=== PATIENT | male | born 1955 | race American Indian/Alaskan Native ===

== ENCOUNTER 2016-08-17 13:10 | Emergency (ER) | payer SELFPAY ==
--- NOTE | 2016-08-17 14:34 | Emergency Department Report ---
Entered by ZACHARY LYON, acting as scribe for LUCAS DODSON PA. Chief Complaint: Extremity Injury, Lower Stated Complaint: KNOTS IN LT THIGH Time Seen by Provider: 08/17/16 14:05 - HPI History of Present Illness: Patient presents to the ED c/o left posterior thigh pain and bruising that began 2 days ago. Rates pain a 7/10 in severity and tight in quality. Patient states the pain woke him up in his sleep 2 days ago and he subsequently felt a "lump". Denies any injury. Denies being on blood thinners. Denies SOB and chest pain. Denies previous Hx of blood clots. - ROS Review of Systems: All system are negative unless stated in HPI above. - Exam Vital Signs: Vital Signs 08/17/16 13:53 Temperature 98.2 F Pulse Rate 68 Respiratory 18 Rate Blood Pressure 139/70 O2 Sat by Pulse 97 Oximetry Physical Exam: General: well nourished, well developed, nontoxic in appearance, in no acute distress Extremities: dorsalis pedis pulses are 2+. Lateral left leg swelling with ecchymosis, left thigh TTP, soreness to left calf MSE screening note: Focused history and physical exam performed. Due to findings the following was ordered: ED Medical Decision Making - Medical Decision Making Medical decision making: Patient seen by provider in triage area. Appropriate protocol activated and patient to main ED to be seen by provider. given clonidine 0.2 mg in triage area. ED Disposition for MSE Condition: Stable This documentation as recorded by the scribe,ZACHARY LYON,accurately reflects the service I personally performed and the decisions made by dc,LUCAS DODSON PA.
[2016-08-17 15:20] LABS: Basophils % (Auto) 0.8 % (0.0-1.8); Eosinophils % (Auto) 2.6 % (0.0-4.3); Hematocrit 37.8 % (35.5-45.6); Hemoglobin 12.4 gm/dl (11.8-15.2); Mean Corpuscular HGB Conc 33 % (32-34); Mean Corpuscular Hemoglobin 32 pg (28-32); Mean Corpuscular Volume 97 fl (84-94); Platelet Count 219 K/mm3 (140-440); Red Blood Count 3.91 M/mm3 (3.65-5.03); Red Cell Distribution Width 13.4 % (13.2-15.2); White Blood Count 7.6 K/mm3 (4.5-11.0)
[2016-08-17 15:29] LABS: INR 0.94 (0.87-1.13)
[2016-08-17 15:30] LABS: Partial Thromboplastin Time 25.1 Sec. (24.2-36.6)
[2016-08-17 15:36] LABS: Anion Gap 15 mmol/L; Blood Urea Nitrogen 12 mg/dL (9-20); Calcium 9.4 mg/dL (8.4-10.2); Carbon Dioxide 29 mmol/L (22-30); Chloride 97.2 mmol/L (98-107); Glucose 77 mg/dL (75-100); Potassium 5.1 mmol/L (3.6-5.0); Sodium 136 mmol/L (137-145)
--- NOTE | 2016-08-17 15:38 | Cat Scan Report ---
CT HEAD WITHOUT CONTRAST INDICATION: Headache. COMPARISON: None similar. FINDINGS: Noncontrast head CT demonstrates normal ventricles and sulci without acute or recent infarct, hemorrhage, mass effect or midline shift. No abnormal extra-axial fluid collections. Posterior fossa structures and basilar cisterns appear within normal limits. Symmetric eye globes. Leftward nasal septal deviation/spur. Mild right frontoethmoid mucosal thickening. Clear remainder paranasal sinuses and mastoid air cells. Intact calvarium. Normal overlying scalp soft tissues. Few radiopaque dental material and missing teeth incidentally noted. Cervical spondylosis. CONCLUSION: No acute intracranial CT abnormality with few other findings, as described. Thank you for the opportunity to participate in this patient's care.
[2016-08-17] MEDS ORDERED: ZOFRAN ODT PO ONE (20:43)
[2016-08-17] MEDS ORDERED: TORADOL IM ONE (20:43)
[2016-08-17] MEDS ORDERED: TYLENOL PO ONE (20:45)
--- NOTE | 2016-08-17 20:46 | Emergency Department Report ---
HPI - General Chief Complaint: Extremity Injury, Lower Time Seen by Provider: 08/17/16 20:06 - HPI HPI: The patient is a 60-year-old male who presents for evaluation of leg pain. The patient reports proximal left thigh pain for the past 2 days. He says his pain has been throbbing in quality, 7/10 in severity, exacerbated with movement of the left upper leg, and constant since onset. He states that he awoke with the pain. He also woke with bruising to the left lateral leg. He does not recall injuring the leg or sustain trauma. He denies fever, swelling of the leg, paresthesias, motor deficit, back pain, abdominal pain, easy bruising or bleeding. ED Past Medical Hx - Past Medical History Hx Hypertension: Yes Hx Diabetes: Yes Additional medical history: high cholesterol - Surgical History Additional Surgical History: back surgery 1992,nose surgery r/t FX - Social History Smoking Status: Current Every Day Smoker Substance Use Type: Alcohol - Medications Home Medications: Home Medications Medication Instructions Recorded Confirmed Last Taken Type Cephalexin [Keflex] 500 mg PO QID #20 capsule 08/17/16 Unknown Rx Cyclobenzaprine HCl [Flexeril 5 MG 5 mg PO Q8HR PRN #15 tab 08/17/16 Unknown Rx TAB] Ibuprofen [Motrin] 800 mg PO Q8HR PRN #15 tablet 08/17/16 Unknown Rx Lisinopril [Zestril TAB] 40 mg PO QDAY 08/17/16 08/17/16 08/17/16 History metFORMIN [Glucophage] 500 mg PO BID 08/17/16 08/17/16 08/17/16 History ED Review of Systems ROS: Stated complaint: KNOTS IN LT THIGH Other details as noted in HPI Constitutional: denies: fever ENT: denies: throat or neck pain Respiratory: denies: cough, shortness of breath Cardiovascular: denies: chest pain Endocrine: denies unexplained weight loss or gain Gastrointestinal: denies: abdominal pain, nausea Genitourinary: denies: dysuria Musculoskeletal: reports left leg pain and bruising denies: leg swelling Skin: denies: rash Neurological: denies: headache Hematological/Lymphatic: denies: easy bleeding or easy bruising Psych: denies sadness or hopelessness Physical Exam - Physical Exam Vital Signs: Vital Signs 08/17/16 08/17/16 13:53 17:49 Temperature 98.2 F 98.4 F Pulse Rate 68 51 L Respiratory 18 16 Rate Blood Pressure 139/70 Blood Pressure 159/66 [Left] O2 Sat by Pulse 97 100 Oximetry Physical Exam: General: well-nourished, well-developed, no acute distress Head: Normocephalic, atraumatic Eyes: normal sclera ENT: Mucous membranes are pink and moist Neck: trachea midline, neck supple, No neck stiffness, no cervical adenopathy Respiratory: Breath sounds equal bilaterally, no wheezing, rales, or rhonchi Cardio: S1 and S2 present, no murmurs, rubs, gallops, capillary refill is brisk Abdomen: Normoactive bowel sounds, soft abdomen, no tenderness Chest WALL/Back: No tenderness to palpation of the chest wall, no CVA tenderness with percussion, small 2-3 cm area of mild erythema to lower thoracic back, right of the midline, nontender, without fluctuance, warmth, crepitance, no sign of abscess at this time, no midline thoracic or lumbar spinous tenderness to palpation, no sensation or motor deficits in the legs bilaterally, reflexes are 2+ and symmetric in the legs as well Musc: two circular 2cm contusions present to the left proximal lateral thigh, tender to palpation, no redness, swelling, fluctuance, crepitus, No pitting edema Skin: No rash Neuro: no facial drooping, normal speech Psych: Normal affect ED Course Vital Signs 08/17/16 08/17/16 13:53 17:49 Temperature 98.2 F 98.4 F Pulse Rate 68 51 L Respiratory 18 16 Rate Blood Pressure 139/70 Blood Pressure 159/66 [Left] O2 Sat by Pulse 97 100 Oximetry ED Medical Decision Making - Lab Data Result diagrams: 08/17/16 15:02 08/17/16 15:02 - Medical Decision Making The patient was seen and examined by myself. The patient is placed on a surveillance monitor and continuous pulse ox. On initial evaluation, the patient was found to be in no distress. Exam findings are positive for contusion to the left proximal lateral thigh and mild cellulitis to the lower back, no fluctuance or sign of abscess at this time. Additionally patient is afebrile. The patient is given a tablet of Tylenol and IM Toradol for his leg pain. EKG was negative for findings suggestive of acute cardiac infarct. Labs and imaging are obtained. Lab results were non-concerning including levels of troponin, WBC , hemoglobin, hematocrit, electrolytes, renal function. The patient was reevaluated and reported that their symptoms were markedly improved. Ultrasound of the left lower leg negative for DVT. The patient is given a prescription for Keflex for treatment of potential early lower back cellulitis. The patient is stable for discharge with outpatient follow-up. The patient is given follow-up and return instructions. The patient expressed understanding and agreed with the plan. The patient is discharged in stable condition. Critical care attestation.: If time is entered above; I have spent that time in minutes in the direct care of this critically ill patient, excluding procedure time. ED Disposition Clinical Impression: Acute pain of left lower extremity, Cellulitis of lower back Contusion of leg, left Qualifiers: Encounter type: initial encounter Qualified Code(s): S80.12XA - Contusion of left lower leg, initial encounter Disposition: DISCHARGED TO HOME OR SELFCARE Is pt being admited?: No Does the pt Need Aspirin: No Condition: Stable Instructions: Cellulitis (ED), Musculoskeletal Pain (ED), Contusion in Adults ( ED) Prescriptions: Cephalexin [Keflex] 500 mg PO QID #20 capsule Cyclobenzaprine HCl [Flexeril 5 MG TAB] 5 mg PO Q8HR PRN #15 tab PRN Reason: Pain Ibuprofen [Motrin] 800 mg PO Q8HR PRN #15 tablet PRN Reason: Pain Referrals: PRIMARY CARE,MD [Primary Care Provider] - 3-5 Days Time of Disposition: 20:36
[2016-08-17 22:20] VITALS: BP 135/82
--- NOTE | 2016-08-18 14:47 | Vascular Lab Report ---
Left Lower Extremity Venous Duplex Study: Reason for Exam: Left leg swelling. Comments on the Right: A limited duplex study was done of the proximal veins of the right lower extremity. All veins visualized are freely compressible without evidence of internal echogenicity. Flow is spontaneous and phasic throughout. No evidence of acute or chronic thrombus is seen in any of the vessels visualized. Comments on the Left: All veins visualized are freely compressible without evidence of internal echogenicity. Flow is spontaneous and phasic throughout. No evidence of acute or chronic thrombus is seen in any of the vessels visualized. Impression: No evidence of acute or chronic deep venous thrombosis in the left lower extremity.
== END 2016-08-17 22:20 | disposition home or self-care (01) ==
LOC: ED 13:10
DX: S80.12XA Contusion of left lower leg, initial encounter (principal); L03.119 Cellulitis of unspecified part of limb; M79.662 Pain in left lower leg; I10 Essential (primary) hypertension; F17.200 Nicotine dependence, unspecified, uncomplicated; E78.00 Pure hypercholesterolemia, unspecified; E11.9 Type 2 diabetes mellitus without complications; X58.XXXA Exposure to other specified factors, initial encounter; Y93.89 Activity, other specified; Y99.9 Unspecified external cause status; Y92.89 Other specified places as the place of occurrence of the external cause
CPT/HCPCS: 36415; 70450; 80048; 84484; 85025; 85610; 85730; 93971; 96372; 99285; J1885; Q0162

== ENCOUNTER 2016-12-23 07:08 | Emergency (ER) | payer SELFPAY ==
[2016-12-23 07:40] VITALS: BP 129/74
--- NOTE | 2016-12-23 09:39 | XRay Report ---
X-RAY LEFT FOOT THREE VIEWS: 12/23/16 07:22:00 CLINICAL: Pain. FINDINGS: No fracture or dislocation. A small Achilles enthesophyte. Mild arthritis at the first MTP joint. The rest of the joints are normal. Vascular calcifications at the ankle. Mild dorsal soft tissue swelling. IMPRESSION: Mild nonspecific soft tissue swelling. Mild arthritis at the first MTP joint and mild Achilles enthesopathy.
[2016-12-23] MEDS ORDERED: PERCOCET 5/325 PO ONE (11:38)
[2016-12-23] MEDS ORDERED: CLEOCIN IM ONE (11:38)
--- NOTE | 2016-12-23 11:56 | Emergency Department Report ---
Entered by ZACHARY LYON, acting as scribe for LUCAS DODSON PA. ED Lower Extremity HPI - General Chief Complaint: Extremity Injury, Lower Stated Complaint: LEFT FOOT INJURY Time Seen by Provider: 12/23/16 08:51 Source: patient, family Mode of arrival: Wheelchair Limitations: No Limitations - History of Present Illness Initial Comments: 61 y/o male with a PMHx of IDDM, HTN, and hyperlipidemia presents to the ED c/o left foot pain that began 2 days ago. Patient states he was standing on his toes reaching for something on top of a shelf and he subsequently heard a pop in his left foot. Rates pain a 10/10 in severity, which he describes as aching in quality. Aggravated with palpation, weight bearing, and movement, and alleviated with immobilization and rest. Denies fever, chills, nausea, vomiting , chest pain, SOB, headache, dizziness, numbness, and tingling. Denies Hx of similar symptoms. Denies PMHx of neuropathy. Patient states his blood sugar is controlled. Allergic to codeine. Patient goes to the [facility] at [facility] for his medical care. MD Complaint: foot injury Onset/Timin -: days(s) (2 days) Injury: Foot: Left (dorsal aspect, pain swelling after injury) Type of Injury: unknown, other (she thinks that when he was trying to reach up to get something from the shelf he injured his left foot but denies any blunt trauma, twisting or falling.) Place: home Severity: severe Severity scale (0 -10): 10 Improves With: immobilization, rest Worsens With: weight bearing, movement, palpation Context: other (reaching for something on a shelf standing on his toes and subsequently heard a pop) Associated Symptoms: snap/pop sensation, swelling (LT foot), able to partially bear weight, ambulatory. denies: numbness, tingling Treatments Prior to Arrival: NSAIDS - Related Data Home Medications Medication Instructions Recorded Confirmed Last Taken Lisinopril [Zestril TAB] 40 mg PO QDAY 08/17/16 08/17/16 08/17/16 metFORMIN [Glucophage] 500 mg PO BID 08/17/16 08/17/16 08/17/16 Previous Rx's Medication Instructions Recorded Last Taken Type Cephalexin [Keflex] 500 mg PO QID #20 capsule 08/17/16 Unknown Rx Cyclobenzaprine HCl [Flexeril 5 MG 5 mg PO Q8HR PRN #15 tab 08/17/16 Unknown Rx TAB] Ibuprofen [Motrin] 800 mg PO Q8HR PRN #15 tablet 08/17/16 Unknown Rx Sulfamethoxazole/Trimethoprim 1 each PO BID #20 tablet 12/23/16 Unknown Rx [Bactrim DS TAB] traMADol [Ultram] 50 mg PO Q6HR PRN #15 tablet 12/23/16 Unknown Rx Allergies Allergy/AdvReac Type Severity Reaction Status Date / Time codeine AdvReac Itching Verified 08/17/16 13:57 ED Review of Systems Comment: All other systems reviewed and negative Constitutional: denies: chills, fever Eyes: denies: eye pain, eye discharge, vision change ENT: denies: ear pain, throat pain Respiratory: denies: cough, orthopnea, shortness of breath, SOB with exertion, SOB at rest, stridor, wheezing Cardiovascular: denies: chest pain, palpitations, dyspnea on exertion, orthopnea , edema, syncope, paroxysmal nocturnal dyspnea Endocrine: no symptoms reported Gastrointestinal: denies: abdominal pain, nausea, vomiting, diarrhea Genitourinary: denies: urgency, dysuria Musculoskeletal: joint swelling (LT foot), arthralgia (LT foot pain). denies: back pain, myalgia Skin: denies: rash, lesions Neurological: abnormal gait (patient with left foot pain and redness and limb.) . denies: headache, weakness, numbness, paresthesias, confusion ED Past Medical Hx - Past Medical History Previous Medical History?: Yes Hx Hypertension: Yes Hx Diabetes: Yes Additional medical history: high cholesterol - Surgical History Past Surgical History?: Yes Additional Surgical History: back surgery 1993,nose surgery r/t FX - Family History Family history: no significant - Social History Smoking Status: Current Every Day Smoker Substance Use Type: None Other Social History: - Medications Home Medications: Home Medications Medication Instructions Recorded Confirmed Last Taken Type Cephalexin [Keflex] 500 mg PO QID #20 capsule 08/17/16 Unknown Rx Cyclobenzaprine HCl [Flexeril 5 MG 5 mg PO Q8HR PRN #15 tab 08/17/16 Unknown Rx TAB] Ibuprofen [Motrin] 800 mg PO Q8HR PRN #15 tablet 08/17/16 Unknown Rx Lisinopril [Zestril TAB] 40 mg PO QDAY 08/17/16 08/17/16 08/17/16 History metFORMIN [Glucophage] 500 mg PO BID 08/17/16 08/17/16 08/17/16 History Sulfamethoxazole/Trimethoprim 1 each PO BID #20 tablet 12/23/16 Unknown Rx [Bactrim DS TAB] traMADol [Ultram] 50 mg PO Q6HR PRN #15 tablet 12/23/16 Unknown Rx ED Physical Exam - General Limitations: No Limitations General appearance: alert, in no apparent distress - Head Head exam: Present: atraumatic, normocephalic - Eye Eye exam: Present: normal appearance, PERRL, EOMI Pupils: Present: normal accommodation - ENT ENT exam: Present: normal exam, normal orophraynx, mucous membranes moist, normal external ear exam - Neck Neck exam: Present: normal inspection, full ROM. Absent: tenderness, meningismus, lymphadenopathy - Respiratory Respiratory exam: Present: normal lung sounds bilaterally. Absent: respiratory distress, wheezes, rales, rhonchi, stridor, accessory muscle use, decreased breath sounds - Cardiovascular Cardiovascular Exam: Present: regular rate, normal rhythm, normal heart sounds. Absent: systolic murmur, diastolic murmur, rubs, gallop - GI/Abdominal GI/Abdominal exam: Present: soft, normal bowel sounds. Absent: distended, tenderness, guarding, rebound, rigid - Extremities Exam Extremities exam: Present: full ROM (painfulr FROM to LT foot), tenderness ( dorsal and plantar aspect of LT foot), normal capillary refill. Absent: normal inspection, pedal edema, joint swelling, calf tenderness - Expanded Lower Extremity Exam Left Hip exam: Present: normal inspection, full ROM, external rotation, internal rotation, pelvic stability. Absent: tenderness, swelling, abrasion, laceration , ecchymosis, deformity, crepidus, dislocation, erythema, shortening Upper Leg exam: Present: normal inspection, full ROM. Absent: tenderness, swelling, abrasion, laceration, ecchymosis, deformity, crepidus, dislocation, erythema Knee exam: Present: normal inspection, full ROM, full knee extension. Absent: tenderness, swelling, abrasion, laceration, ecchymosis, deformity, crepidus, dislocation, erythema, effusion, pain w/ pronation/supination, posterior draw sign, pain/laxity with valgus, pain/laxity with varus Lower Leg exam: Present: normal inspection, full ROM. Absent: tenderness, swelling, abrasion, laceration, ecchymosis, deformity, crepidus, dislocation, erythema, palpable cord, Nusrat's sign Ankle exam: Present: normal inspection, full ROM. Absent: tenderness, swelling , abrasion, laceration, ecchymosis, deformity, crepidus, dislocation, erythema, anterior draw sign Foot/Toe exam: Present: full ROM (painful with AROM to LT foot.), tenderness ( dorsal and plantar aspect of LT control room tender to palpate), swelling (mild swelling to dorsal aspect of LT foot anterior), erythema (dorsal aspect of LT foot, anteriorly). Absent: normal inspection, abrasion, laceration, ecchymosis , deformity, crepidus, dislocation, amputation, puncture wound, foreign body, calcaneal tenderness, tenderness at base of 5th metatarsal, nail avulsion, subungual hematoma Neuro vascular tendon exam: Present: no vascular compromise (2+ pulses bounding) . Absent: pulse deficit, abnormal cap refill, motor deficit, sensory deficit, tendon deficit, extremity cold to touch, pallor, abnormal 2-point discrimination , decreased fine/light touch, foot drop, peroneal nerve deficit, significant pain with passive ROM of distal joint Gait: Positive: observed and limited by pain - Back Exam Back exam: Present: normal inspection, full ROM. Absent: tenderness, CVA tenderness (R), CVA tenderness (L), muscle spasm, paraspinal tenderness, vertebral tenderness, rash noted - Neurological Exam Neurological exam: Present: alert, oriented X3, abnormal gait (due to LT foot pain), reflexes normal. Absent: motor sensory deficit - Psychiatric Psychiatric exam: Present: normal affect, normal mood - Skin Skin exam: Present: warm, dry, intact, erythema (Erythema noted to the left anterior foot, dorsally. Increased temperature to left foot when compared to right foot. +2 pulses.pillar refill is less than 3 seconds). Absent: rash, abrasion, ecchymosis ED Course Vital Signs 12/23/16 07:10 Temperature 98.1 F Pulse Rate 80 Respiratory 20 Rate Blood Pressure 129/74 O2 Sat by Pulse 98 Oximetry - Reevaluation(s) Reevaluation #1: 12/23/16 11:46 Patient given clindamycin 600 mg IM for cellulitis of left foot. He was also given Percocet 5/325 2 tablets by mouth for left foot pain. No adverse reaction. ED Lower Extremity MDM - Radiology Data X-ray of left foot showed soft tissue swelling but no bony abnormality. No fracture or dislocation - Medical Decision Making ED course: Pt here report left foot pain and thinks that he injured his left foot while he was trying to reach for something in his cupboard. X-ray report revealed no fracture or dislocation. Patient is a diabetic and his left foot is erythema with mild swelling and temperature is graded to left foot than right foot. Suspect this is from cellulitis. I discussed this with patient and explained to him that he will need to follow-up with foot doctor. Patient' s that he goes to the [facility] and he'll call to schedule an appointment for follow- up visit cellulitis. Patient and discharged home with his in stable condition. Patient was given Percocet 5/325 mg 2 tablets which relieved this pain and he was given clindamycin 600 mg IM for cellulitis. Diagnostics: See radiology section for x-ray of left foot report Assessment/plan 1. Cellulitis left foot 2 .arthralgia left foot 3. Personal history of diabetes on medication Prescription for Bactrim DS and Ultram given to patient. Instructed to follow-up with manager room and also call [facility] clinic to schedule an appointment follow-up visit cellulitis. I also instructed him to monitor his blood or more frequently as infection cause is increase in blood sugar. Patient takes metformin for his diabetes ED Disposition Clinical Impression: Cellulitis of foot, left, Left foot pain, History of type 2 diabetes mellitus Disposition: DC-01 TO HOME OR SELFCARE Is pt being admited?: No Does the pt Need Aspirin: No Condition: Stable Instructions: Arthralgia (ED), Cellulitis (ED) Additional Instructions: Please follow up with [facility] clinic to manage cellulitis and diabetes. Please call today to schedule an appointment for follow-up visit in 2 days Take medication as prescribed. Keep affected area clean and dry Increase your fluid intake Take blood sugar at least twice a day as infection can cause your blood sugar to rise Prescriptions: Sulfamethoxazole/Trimethoprim [Bactrim DS TAB] 1 each PO BID #20 tablet traMADol [Ultram] 50 mg PO Q6HR PRN #15 tablet PRN Reason: Pain Referrals: [facility] [Outside] - 12/25/16 AQUILES VILLARREAL DPM [Staff Physician] - 12/25/16 Forms: Work/School Release Form(ED) This documentation as recorded by the CAMORN rivera JASMINE,accurately reflects the service I personally performed and the decisions made by ,LUCAS DODSON PA.
== END 2016-12-23 12:23 | disposition home or self-care (01) ==
LOC: ED 07:08
DX: L03.116 Cellulitis of left lower limb (principal); E11.9 Type 2 diabetes mellitus without complications; I10 Essential (primary) hypertension; E78.00 Pure hypercholesterolemia, unspecified; F17.200 Nicotine dependence, unspecified, uncomplicated; Z88.6 Allergy status to analgesic agent
CPT/HCPCS: 96372

== ENCOUNTER 2017-11-07 21:52 | Emergency (ER) | payer SELFPAY | END 2017-11-07 23:50 | disposition left against medical advice (07) | LOC: ED 21:52 | DX: R19.7 Diarrhea, unspecified (principal); Z53.21 Procedure and treatment not carried out due to patient leaving prior to being seen by health care provider ==

== ENCOUNTER 2017-12-25 20:10 | Emergency (ER) | payer SELFPAY ==
[2017-12-25 20:44] LABS: Basophils # (Auto) 0.1 K/mm3 (0.0-0.1); Basophils % (Auto) 0.6 % (0.0-1.8); Eosinophils # (Auto) 0.2 K/mm3 (0.0-0.4); Eosinophils % (Auto) 1.9 % (0.0-4.3); Hematocrit 38.7 % (35.5-45.6); Hemoglobin 12.8 gm/dl (11.8-15.2); Lymphocytes % (Auto) 18.5 % (13.4-35.0); Mean Corpuscular HGB Conc 33 % (32-34); Mean Corpuscular Hemoglobin 32 pg (28-32); Mean Corpuscular Volume 96 fl (84-94); Monocytes % (Auto) 9.1 % (0.0-7.3); Platelet Count 210 K/mm3 (140-440); Red Blood Count 4.04 M/mm3 (3.65-5.03); Red Cell Distribution Width 13.4 % (13.2-15.2)
[2017-12-25] MEDS ORDERED: NARCAN 2 MG/2 ML 2 MG in NACL 0.9% 500 ML 500 ML IV ONE (20:47)
[2017-12-25] MEDS ORDERED: NARCAN 2 MG/2 ML IV ONE (20:47)
[2017-12-25] MEDS ORDERED: NARCAN 2 MG/2 ML ONE (20:53)
--- NOTE | 2017-12-25 20:55 | Emergency Department Report ---
History of Present Illness - General Chief Complaint: Overdose Stated Complaint: POSS OD Time Seen by Provider: 12/25/17 20:42 Source: patient, EMS Mode of arrival: Stretcher Limitations: No Limitations - History of Present Illness Initial Comments: Patient is 62 years old male brought to the ER via EMS after he was found by his significant other in the bathroom unconscious and gasping for breath. patient stated that he took a quarter of heroin this evening. He stated that he took it to get high. Patient denied any suicidal ideation. Patient is currently alert but drowsy sometimes. Another 2 mg of IV Narcan was given and I started patient on Narcan drip. Complaint: accidental overdose - Related Data Home Medications Medication Instructions Recorded Confirmed Last Taken Lisinopril [Zestril TAB] 40 mg PO QDAY 08/17/16 08/17/16 08/17/16 metFORMIN [Glucophage] 500 mg PO BID 08/17/16 08/17/16 08/17/16 Previous Rx's Medication Instructions Recorded Last Taken Type Cyclobenzaprine HCl [Flexeril 5 MG 5 mg PO Q8HR PRN #15 tab 08/17/16 Unknown Rx TAB] Ibuprofen [Motrin] 800 mg PO Q8HR PRN #15 tablet 08/17/16 Unknown Rx cephALEXin [Keflex] 500 mg PO QID #20 capsule 08/17/16 Unknown Rx Sulfamethoxazole/Trimethoprim 1 each PO BID #20 tablet 12/23/16 Unknown Rx [Bactrim DS TAB] traMADol [Ultram] 50 mg PO Q6HR PRN #15 tablet 12/23/16 Unknown Rx Allergies Allergy/AdvReac Type Severity Reaction Status Date / Time codeine AdvReac Itching Verified 08/17/16 13:57 ED Review of Systems ROS: Stated complaint: POSS OD Other details as noted in HPI Comment: All other systems reviewed and negative Constitutional: denies: chills, fever Respiratory: denies: cough, orthopnea, shortness of breath, SOB with exertion, wheezing Gastrointestinal: denies: vomiting, diarrhea, constipation, hematemesis, hematochezia Skin: denies: rash, lesions ED Past Medical Hx - Past Medical History Previous Medical History?: Yes Hx Hypertension: Yes Hx Diabetes: Yes Additional medical history: high cholesterol - Surgical History Past Surgical History?: Yes Additional Surgical History: back surgery 1993,nose surgery r/t FX - Social History Smoking Status: Current Every Day Smoker Substance Use Type: Alcohol, Heroin - Medications Home Medications: Home Medications Medication Instructions Recorded Confirmed Last Taken Type Cyclobenzaprine HCl [Flexeril 5 MG 5 mg PO Q8HR PRN #15 tab 08/17/16 Unknown Rx TAB] Ibuprofen [Motrin] 800 mg PO Q8HR PRN #15 tablet 08/17/16 Unknown Rx Lisinopril [Zestril TAB] 40 mg PO QDAY 08/17/16 08/17/16 08/17/16 History cephALEXin [Keflex] 500 mg PO QID #20 capsule 08/17/16 Unknown Rx metFORMIN [Glucophage] 500 mg PO BID 08/17/16 08/17/16 08/17/16 History Sulfamethoxazole/Trimethoprim 1 each PO BID #20 tablet 12/23/16 Unknown Rx [Bactrim DS TAB] traMADol [Ultram] 50 mg PO Q6HR PRN #15 tablet 12/23/16 Unknown Rx ED Physical Exam - General Limitations: No Limitations General appearance: alert, in no apparent distress - Head Head exam: Present: atraumatic, normocephalic, normal inspection - Eye Eye exam: Present: normal appearance Pupils: Present: other (pupils are pinpoint) - ENT ENT exam: Present: normal exam, normal orophraynx, mucous membranes moist - Neck Neck exam: Present: normal inspection, full ROM. Absent: tenderness, meningismus, lymphadenopathy - Respiratory Respiratory exam: Present: normal lung sounds bilaterally. Absent: respiratory distress, wheezes, rales, rhonchi, stridor, chest wall tenderness, accessory muscle use, decreased breath sounds, prolonged expiratory - Cardiovascular Cardiovascular Exam: Present: regular rate, normal rhythm, normal heart sounds - GI/Abdominal GI/Abdominal exam: Present: soft, normal bowel sounds. Absent: distended, tenderness, guarding, rebound, rigid, organomegaly, mass, bruit, pulsatile mass , hernia - Extremities Exam Extremities exam: Present: normal inspection, full ROM, normal capillary refill - Back Exam Back exam: Present: normal inspection, full ROM. Absent: tenderness, CVA tenderness (R), CVA tenderness (L) - Neurological Exam Neurological exam: Present: alert, oriented X3, CN II-XII intact, reflexes normal - Skin Skin exam: Present: warm, intact, normal color ED Course Vital Signs 12/25/17 12/25/17 12/25/17 20:17 20:34 20:45 Temperature 97.9 F Pulse Rate 62 91 H 84 Respiratory 16 10 L Rate Blood Pressure 126/62 133/67 O2 Sat by Pulse 95 94 99 Oximetry 12/25/17 12/25/17 12/25/17 21:00 21:16 21:30 Temperature Pulse Rate 112 H Respiratory 17 24 16 Rate Blood Pressure 140/88 140/88 140/70 O2 Sat by Pulse 96 100 98 Oximetry 12/25/17 12/25/17 12/25/17 21:46 22:00 22:15 Temperature Pulse Rate 79 81 77 Respiratory 14 13 10 L Rate Blood Pressure 140/70 134/72 134/72 O2 Sat by Pulse 99 98 100 Oximetry 12/25/17 12/25/17 12/25/17 22:30 22:45 23:00 Temperature Pulse Rate 76 84 75 Respiratory 12 16 12 Rate Blood Pressure 134/72 142/72 141/73 O2 Sat by Pulse 99 100 99 Oximetry 12/25/17 12/25/17 12/25/17 23:16 23:30 23:45 Temperature Pulse Rate 83 74 77 Respiratory 14 14 13 Rate Blood Pressure 141/73 141/73 149/66 O2 Sat by Pulse 98 99 99 Oximetry 12/26/17 12/26/17 12/26/17 00:01 00:15 00:30 Temperature Pulse Rate 71 71 70 Respiratory 18 15 15 Rate Blood Pressure 120/67 120/67 114/59 O2 Sat by Pulse 100 100 99 Oximetry 12/26/17 12/26/17 12/26/17 00:45 01:00 01:16 Temperature Pulse Rate 64 65 62 Respiratory 16 14 13 Rate Blood Pressure 114/59 114/59 145/71 O2 Sat by Pulse 100 100 97 Oximetry 12/26/17 12/26/17 12/26/17 01:31 01:45 02:00 Temperature Pulse Rate 62 60 65 Respiratory 14 14 20 Rate Blood Pressure 111/64 111/64 111/64 O2 Sat by Pulse 97 97 99 Oximetry 12/26/17 12/26/17 12/26/17 02:16 02:30 02:45 Temperature Pulse Rate 65 61 58 L Respiratory 12 11 L 12 Rate Blood Pressure 125/52 114/44 114/44 O2 Sat by Pulse 96 96 98 Oximetry 12/26/17 03:00 Temperature Pulse Rate 65 Respiratory 13 Rate Blood Pressure 114/44 O2 Sat by Pulse 98 Oximetry - Reevaluation(s) Reevaluation #1: 12/26/17 01:02 I examined the patient multiple times during his ER course. Patient remained alert and oriented 3. Patient still denying any suicidal ideation. Patient is asking for drug rehabilitation. I will consult our mental health team to help the patient with his desires. ED Medical Decision Making - Lab Data Result diagrams: 12/25/17 20:32 12/25/17 20:32 Critical Care Time: Yes Critical care time in (mins) excluding proc time.: 45 Critical care attestation.: If time is entered above; I have spent that time in minutes in the direct care of this critically ill patient, excluding procedure time. ED Disposition Clinical Impression: Heroin overdose, Polysubstance abuse, Acute respiratory failure Disposition: [id number]/TX-[id number] PS[facility] HOSP/PSY UNIT Is pt being admited?: No Condition: Stable Instructions: Polysubstance Abuse (ED) Referrals: PRIMARY CARE [Primary Care Provider] - 3-5 Days
[2017-12-25 21:01] LABS: Albumin 4.1 g/dL (3.9-5); Calcium 9.2 mg/dL (8.4-10.2)
[2017-12-25] MEDS ORDERED: NACL 0.9% 1000 ML 1,000 ML IV ONE (23:24)
[2017-12-25 23:59] LABS: Bacteria,Urine 1+ /HPF (Negative); Bilirubin,Urine NEG (Negative); Blood,Urine NEG (Negative); Color,Urine Yellow (Yellow); Hyaline Casts,Urine 3 /LPF; Mucus,Urine FEW /HPF; Urobilinogen,Urine < 2.0 mg/dL (<2.0)
[2017-12-26 00:09] LABS: Amphetamine Screen,Urine PRESUMPTIVE NEGATIVE; Benzodiazepines Screen,Urine PRESUMPTIVE NEGATIVE; Methadone Screen,Urine PRESUMPTIVE NEGATIVE
[2017-12-26 00:29] LABS: Cannabinoid Screen,Urine PRESUMPTIVE POSITIVE; Cocaine Screen,Urine PRESUMPTIVE POSITIVE; Opiate Screen,Urine PRESUMPTIVE POSITIVE
[2017-12-26 04:18] VITALS: BP 114/44
== END 2017-12-26 05:45 ==
LOC: ED 20:10
DX: T40.1X1A Poisoning by heroin, accidental (unintentional), initial encounter (principal); F19.10 Other psychoactive substance abuse, uncomplicated; J96.00 Acute respiratory failure, unspecified whether with hypoxia or hypercapnia; I10 Essential (primary) hypertension; E11.9 Type 2 diabetes mellitus without complications; E78.00 Pure hypercholesterolemia, unspecified; F17.200 Nicotine dependence, unspecified, uncomplicated; Z79.899 Other long term (current) drug therapy; Z88.4 Allergy status to anesthetic agent
CPT/HCPCS: 36415; 80053; 80307; 81001; 84443; 85025; 93005; 93010; 96365; 96366; 96375; 99291; G0480; J2310; J7040; 80320

== ENCOUNTER 2018-07-24 04:46 | Emergency (ER) | payer SELFPAY | END 2018-07-24 05:51 | disposition left against medical advice (07) | LOC: ED 04:46 | DX: T50.901A Poisoning by unspecified drugs, medicaments and biological substances, accidental (unintentional), initial encounter (principal); Y92.89 Other specified places as the place of occurrence of the external cause; Z53.21 Procedure and treatment not carried out due to patient leaving prior to being seen by health care provider ==

== ENCOUNTER 2021-02-20 20:36 | Emergency (ER) | payer MEDICARE ==
[2021-02-20 21:42] LABS: Basophils # (Auto) 0.1 K/mm3 (0.0-0.1); Basophils % (Auto) 0.9 % (0.0-1.8); Eosinophils # (Auto) 0.2 K/mm3 (0.0-0.4); Eosinophils % (Auto) 2.3 % (0.0-4.3); Hemoglobin 11.4 gm/dl (11.8-15.2); Lymphocytes # (Auto) 2.8 K/mm3 (1.2-5.4); Lymphocytes % (Auto) 37.3 % (13.4-35.0); Mean Corpuscular HGB Conc 33 % (32-34); Mean Corpuscular Volume 96 fl (84-94); Monocytes # (Auto) 0.7 K/mm3 (0.0-0.8); Monocytes % (Auto) 9.8 % (0.0-7.3); Platelet Count 270 K/mm3 (140-440); Red Blood Count 3.65 M/mm3 (3.65-5.03); Red Cell Distribution Width 13.2 % (13.2-15.2)
[2021-02-20 21:54] LABS: Alanine Aminotransferase 17 units/L (7-56); Albumin 3.8 g/dL (3.9-5); BUN/Creatinine Ratio 24; Blood Urea Nitrogen 34 mg/dL (9-20); Hemolysis Index 14
[2021-02-20 22:01] LABS: Bilirubin,Urine NEG (Negative); Blood,Urine NEG (Negative); Color,Urine Yellow (Yellow); Protein,Urine <15 mg/dL mg/dL (Negative); Urobilinogen,Urine < 2.0 mg/dL (<2.0); WBC,Urine < 1.0 /HPF (0.0-6.0)
[2021-02-20] MEDS ORDERED: HYDROmorphone 1 MG/1 ML INJ IV ONE (22:20)
[2021-02-20] MEDS ORDERED: ONDANSETRON 4 MG/2 ML INJ IV ONE (22:20)
--- NOTE | 2021-02-20 22:23 | Emergency Department Report ---
ED Abdominal Pain HPI - General Chief Complaint: Abdominal Pain Stated Complaint: ABDOMINAL PAIN PUI?: No Time Seen by Provider: 02/20/21 22:19 Source: patient Mode of arrival: Ambulatory Limitations: No Limitations - History of Present Illness Initial Comments: Patient is a 65-year-old male presents emergency room with complaints of generalized abdominal pain. Patient states the pain started 7 days ago. Patient states the pain is worsening. Patient states that it is more in the left upper quadrant. Patient states he has a history of pancreatitis. Patient states the pain is severe. Patient states the pain is 8 out of 10. Patient states he has had some nausea vomiting. Patient states only when the pain is severe that she started throwing up. Patient denies fever and chills. Patient denies blood in his vomitus. Patient denies diarrhea. Patient denies recent travel. Patient denies recent international travel. Patient denies exposure to the novel coronavirus. Patient denies sick contacts. Patient denies fever and chills. Patient denies cough. Patient denies diarrhea. Patient denies coming in contact with anybody with symptoms of the novel coronavirus. MD Complaint: abdominal pain -: Sudden Location: diffuse Radiation: none Migration to: no migration Severity: severe Severity scale (0 -10): 10 Quality: stabbing Consistency: constant Improves With: rest Worsens With: vomiting, movement Associated Symptoms: nausea, vomiting. denies: diarrhea, fever, chills, constipation, dysuria, hematemesis, hematochezia, melena, hematuria, syncope - Related Data Home Medications Medication Instructions Recorded Confirmed Last Taken lisinopriL [Zestril TAB] 40 mg PO QDAY 08/17/16 08/17/16 08/17/16 metFORMIN [Glucophage] 500 mg PO BID 08/17/16 08/17/16 08/17/16 Previous Rx's Medication Instructions Recorded Last Taken Type Cyclobenzaprine HCl [Flexeril 5 MG 5 mg PO Q8HR PRN #15 tab 08/17/16 Unknown Rx TAB] Ibuprofen [Motrin] 800 mg PO Q8HR PRN #15 tablet 08/17/16 Unknown Rx cephALEXin [Keflex] 500 mg PO QID #20 capsule 08/17/16 Unknown Rx Sulfamethoxazole/Trimethoprim 1 each PO BID #20 tablet 12/23/16 Unknown Rx [Bactrim DS TAB] traMADoL [Ultram] 50 mg PO Q6HR PRN #15 tablet 12/23/16 Unknown Rx Omeprazole 40 mg PO DAILY 30 Days #30 02/21/21 Unknown Rx capsule. Allergies Allergy/AdvReac Type Severity Reaction Status Date / Time codeine AdvReac Itching Verified 08/17/16 13:57 ED Review of Systems ROS: Stated complaint: ABDOMINAL PAIN Other details as noted in HPI Constitutional: denies: chills, fever Eyes: denies: eye pain, eye discharge, vision change ENT: denies: ear pain, throat pain Respiratory: denies: cough, shortness of breath, wheezing Cardiovascular: denies: chest pain, palpitations Endocrine: no symptoms reported Gastrointestinal: as per HPI, abdominal pain, nausea, vomiting. denies: diarrhea Genitourinary: denies: urgency, dysuria Musculoskeletal: denies: back pain, joint swelling, arthralgia Skin: denies: rash, lesions Neurological: denies: headache, weakness, paresthesias Psychiatric: denies: anxiety, depression Hematological/Lymphatic: denies: easy bleeding, easy bruising ED Past Medical Hx - Past Medical History Previous Medical History?: Yes Hx Hypertension: Yes Hx Diabetes: Yes Additional medical history: high cholesterol - Surgical History Past Surgical History?: Yes Additional Surgical History: back surgery 1992,nose surgery r/t FX - Family History Family history: no significant - Social History Smoking Status: Current Every Day Smoker Substance Use Type: Alcohol, Heroin - Medications Home Medications: Home Medications Medication Instructions Recorded Confirmed Last Taken Type Cyclobenzaprine HCl [Flexeril 5 MG 5 mg PO Q8HR PRN #15 tab 08/17/16 Unknown Rx TAB] Ibuprofen [Motrin] 800 mg PO Q8HR PRN #15 tablet 08/17/16 Unknown Rx cephALEXin [Keflex] 500 mg PO QID #20 capsule 08/17/16 Unknown Rx lisinopriL [Zestril TAB] 40 mg PO QDAY 08/17/16 08/17/16 08/17/16 History metFORMIN [Glucophage] 500 mg PO BID 08/17/16 08/17/16 08/17/16 History Sulfamethoxazole/Trimethoprim 1 each PO BID #20 tablet 12/23/16 Unknown Rx [Bactrim DS TAB] traMADoL [Ultram] 50 mg PO Q6HR PRN #15 tablet 12/23/16 Unknown Rx Omeprazole 40 mg PO DAILY 30 Days #30 02/21/21 Unknown Rx capsule. ED Physical Exam - General Limitations: No Limitations General appearance: alert, in no apparent distress - Head Head exam: Present: atraumatic, normocephalic - Eye Eye exam: Present: normal appearance - ENT ENT exam: Present: mucous membranes moist - Neck Neck exam: Present: normal inspection - Respiratory Respiratory exam: Present: normal lung sounds bilaterally. Absent: respiratory distress, wheezes, rales - Cardiovascular Cardiovascular Exam: Present: regular rate, normal rhythm. Absent: systolic murmur, diastolic murmur, rubs, gallop - GI/Abdominal GI/Abdominal exam: Present: soft, distended, tenderness, normal bowel sounds - Rectal Rectal exam: Present: deferred - Extremities Exam Extremities exam: Present: normal inspection - Back Exam Back exam: Present: normal inspection - Neurological Exam Neurological exam: Present: alert, oriented X3 - Psychiatric Psychiatric exam: Present: normal affect, normal mood - Skin Skin exam: Present: warm, dry, intact, normal color. Absent: rash ED Course Vital Signs 02/20/21 02/20/21 20:59 22:43 Temperature 97.5 F L Pulse Rate 73 Respiratory 14 20 Rate Blood Pressure 138/61 O2 Sat by Pulse 96 Oximetry - Reevaluation(s) Reevaluation #1: Patient states feeling much better. Patient states he has had a mild irritation in his epigastric region. Patient will be given a GI cocktail. I discussed all results and clinical findings with patient. I discussed plan of care with patient. Patient agrees with plan of care. Patient is stable for discharge. Patient will be discharged home. Patient given discharge instructions. Patient voiced understanding of discharge instructions. 02/21/21 02:24 ED Medical Decision Making - Lab Data Result diagrams: 02/20/21 21:16 02/20/21 21:16 - Radiology Data Radiology results: report reviewed CT ABDOMEN AND PELVIS WITH CONTRAST HISTORY: high lipase. abd pain. COMPARISON: None. TECHNIQUE: CT images of the abdomen and pelvis were obtained following administration of intravenous contrast. All CT scans at this location are performed using CT dose reduction for ALARA by means of automated exposure control. CONTRAST: 100 ml of intravenous contrast administered. FINDINGS: Lungs/bones: Atelectasis with chronic interstitial change in lung bases Abdomen/pelvis: There is diffuse fatty infiltration liver the liver appears mildly enlarged. Spleen, adrenal glands appear normal. No peripancreatic fluid collection or inflammation. Gallbladder appears normal. Upper GI tract appears normal. Bilateral renal cysts are seen. Atherosclerotic changes seen throughout the aorta. A few diverticula in the colo n. Appendix appears normal. Degenerative changes seen throughout spine no bowel obstruction. IMPRESSION: 1. No CT evidence for pancreatitis at this time. 2. Marked thickening of the distal esophagus extending to the GE junction. Upper GI and follow-up with GI is recommended. 3. Fatty infiltration the liver. 4. Bilateral renal cysts. Sigmoid diverticulosis - Medical Decision Making Patient is a 65-year-old male who presents emergency room with complaints of abdominal pain. Patient's complaint is generalized. Patient states his symptoms mostly in the left upper quadrant. Patient had labs done which were essentially unremarkable except for abnormal chemistry consistent with mild renal sufficiency and dehydration and hyperkalemia. Patient's lipase was elevated. Patient had a CT scan of the abdomen to rule out acute process. Patient's abdominal CT was negative for pancreatitis and showed only gastritis. Patient given Dilaudid and Zofran and responded well to treatment. Patient then given a GI cocktail prior to discharge. Patient received bonded well to [facility]. Patient discharged from the ER with minimal symptoms. Patient instructed to increase water intake. Patient does not require inpatient services. Patient not require further emergency medical service. I discussed all results and clinical findings with patient. I discussed plan of care with patient. Patient agrees with plan of care. Patient is stable for discharge. Patient will be discharged home. Patient given discharge instructions. Patient voiced understanding of discharge instructions. - Differential Diagnosis Abdominal pain, pancreatitis, gastritis, gastroenteritis, nausea Critical care attestation.: If time is entered above; I have spent that time in minutes in the direct care of this critically ill patient, excluding procedure time. ED Disposition Clinical Impression: Abdominal pain Qualifiers: Abdominal location: generalized Qualified Code(s): R10.84 - Generalized abdominal pain Gastritis Qualifiers: Gastritis type: unspecified gastritis Chronicity: acute Gastritis bleeding: without bleeding Qualified Code(s): K29.00 - Acute gastritis without bleeding Disposition: HOME / SELF CARE / HOMELESS Is pt being admited?: No Does the pt Need Aspirin: No Condition: Stable Instructions: Gastritis, Adult, [id number], Abdominal Pain, Adult, [id number] Additional Instructions: Patient to follow-up with primary care in 2 to 3 days. Patient to follow-up with 911 telecommunicator in 2 to 3 days. Patient to rest. Patient to increase w ater. Patient to avoid spicy food. Patient to eat a GERD diet. Patient to avoid NSAIDs. Patient to take Tylenol as needed for pain. Patient to take meds as directed. Patient to return to the ER if condition worsens, changes or new symptoms arise. Prescriptions: Omeprazole 40 mg PO DAILY 30 Days #30 capsule.dr Referrals: LUX CRAPIO MD [Staff Physician] - 2-3 Days KATELYN DEGROOT MD [Staff Physician] - 2-3 Days Time of Disposition: 02:26
--- NOTE | 2021-02-20 23:40 | Cat Scan Report ---
CT ABDOMEN AND PELVIS WITH CONTRAST HISTORY: high lipase. abd pain. COMPARISON: None. TECHNIQUE: CT images of the abdomen and pelvis were obtained following administration of intravenous contrast. All CT scans at this location are performed using CT dose reduction for ALARA by means of automated exposure control. CONTRAST: 100 ml of intravenous contrast administered. FINDINGS: Lungs/bones: Atelectasis with chronic interstitial change in lung bases Abdomen/pelvis: There is diffuse fatty infiltration liver the liver appears mildly enlarged. Spleen, adrenal glands appear normal. No peripancreatic fluid collection or inflammation. Gallbladder appear s normal. Upper GI tract appears normal. Bilateral renal cysts are seen. Atherosclerotic changes seen throughout the aorta. A few diverticula in the colon. Appendix appears normal. Degenerative changes seen throughout spine no bowel obstruction. IMPRESSION: 1. No CT evidence for pancreatitis at this time. 2. Marked thickening of the distal esophagus extending to the GE junction. Upper GI and follow-up wit h GI is recommended. 3. Fatty infiltration the liver. 4. Bilateral renal cysts. Sigmoid diverticulosis Signer Name: Blue Sylvester MD Signed: 02/20/2021 11:35 PM Workstation Name: [id number]
[2021-02-21] MEDS ORDERED: LIDOCAINE VISCOUS 2% 15 ML ORAL LIQD PO ONE (02:43)
[2021-02-21] MEDS ORDERED: ALUM-MAG HYDROXIDE-SIMETHICONE 200-200-20MG/5ML ORAL LIQD 30 ML PO ONE (02:43)
[2021-02-21 03:13] VITALS: BP 145/76
== END 2021-02-21 03:13 | disposition home or self-care (01) ==
LOC: ED 20:36
DX: R10.84 Generalized abdominal pain (principal); K29.00 Acute gastritis without bleeding; I10 Essential (primary) hypertension; E11.8 Type 2 diabetes mellitus with unspecified complications; F17.200 Nicotine dependence, unspecified, uncomplicated; F10.20 Alcohol dependence, uncomplicated; Z88.5 Allergy status to narcotic agent
CPT/HCPCS: 36415; 74177; 80053; 81001; 83690; 85025; 96374; 96375; 99284; J1170; J2405; Q9967